=== PATIENT | female | born 2000 | race Caucasian/White ===

== ENCOUNTER 2020-02-06 02:24 | Inpatient (IN) ==
[2020-02-06] MEDS ORDERED: LACTATED RINGER'S 1,000 ML IV PRN (05:13)
[2020-02-06] MEDS ORDERED: METHYLERGONOVINE MALEATE 0.2 MG/ML AMP IM PRN (05:13)
[2020-02-06] MEDS ORDERED: OXYTOCIN 30 UNITS/500 ML BAG IV PRN ×2 (05:13→09:28)
[2020-02-06] MEDS ORDERED: PENICILLIN G POTASSIUM 3 MU in DEXTROSE 5% 100 ML IV PRN (05:30)
[2020-02-06] MEDS ORDERED: PENICILLIN G POTASSIUM 6 MU in DEXTROSE 5% 250 ML IV STA (05:35)
[2020-02-06 05:45] LABS: Hematocrit (blood only) 35.8 % (37-47); Hemoglobin 11.9 g/dL (12.0-16.0); Mean Corpuscular Hemoglobin 28.8 pg (25-34); Mean Corpuscular Volume 86.7 fL (80-100); Mean Platelet Volume 10.8 fL (7.4-10.4); Platelet Count 287 K/uL (130-400); RDW Coefficient of Variation 13.2 % (11.5-14.5); RDW Standard Deviation 41.8 fL (36.4-46.3); Red Blood Count 4.13 M/uL (4.2-5.4); White Blood Count 12.59 K/uL (4.8-10.8)
[2020-02-06 05:47] LABS: Mean Corpuscular Hgb Conc 33.2 g/dL (32-36)
[2020-02-06] MEDS ORDERED: ePHEDrine sulfate 50 MG/ML AMP ONE (06:26)
[2020-02-06] MEDS ORDERED: BUPIVACAINE 0.25% 30 ML VIAL ONE (06:26)
[2020-02-06] MEDS ORDERED: fentaNYL citrate 100 MCG/2 ML VIAL ONE (06:26)
[2020-02-06] MEDS ORDERED: fentaNYL 2MCG/ML ROPIV 1.25MG/ML 100 ML BAG EPI ONE (06:27)
--- NOTE | 2020-02-06 06:31 | History & Physical Report ---
Date of Service February 06, 2020 Assessment & Plan (1) Active labor at term: (2) Group B streptococcal bacteriuria: pt is admitted. iv abx due to gbs. suspect rupture at time pt reported before coming in although has been difficult to confirm time. now in active labor. consult anesth for epidural that pt desires[facility] Admission and Anticipated Discharge Date Admission Date: February 06, 2020 History of Present Illness Chief Complaint: regular ctx ? rom at 130am Primary Care Provider: Bairon Zepeda PA-C 19yo at 39+wks hermelinda presents to L&D with above cc. She called at 130am noting kick of baby and gush of fluid at 1 am today 02/06/20. She felt trickling. She was not having ctx. She wanted to come in for evaluation. When she came her pad was somewhat dry and was 1cm per nurse. She walked and labor started at her next exam about 5am she was 3cm with a regular ctx pattern and was admitted. Now she is breathing with ctx. Pads have been wet but not soaked. Per nurse at last check could not feel a bag of water. She desires epidural when able. course c/b 1. GBS pos PNL RH pos, RI, GBS pos OBH: g1 GYNH: nl paps no stds Allergies Allergy/AdvReac Type Severity Reaction Status Date / Time No Known Allergies Allergy Verified 02/06/20 02:40 Home Medications Home Medications Medication Instructions Recorded Confirmed Type clindamycin phosphate [Cleocin T] 1 applic TOPICAL BID PRN 08/17/19 02/06/20 History prenat.vits,chad,[id number]-[id number]-irpvv 1 tab PO DAILY 08/21/19 02/06/20 History Patient History Medical History (Updated 02/06/20 @ 06:30 by Aysha Shelton MD, FACOG) Alopecia Encounter for anatomic survey Hydronephrosis UTI (urinary tract infection) Varicella vaccine Surgical History (Updated 02/06/20 @ 02:40 by Anika Pham RN) [place] teeth removed 2014 Family History (Updated 02/06/20 @ 02:40 by Anika Pham RN) Grandmother (Maternal) Diabetes Myocardial infarction Hypertension Aunt Dyslipidemia Grandfather (Paternal) Kidney stones Grandfather (Maternal) Stroke Social History (Updated 08/21/19 @ 11:04 by Candida Avila) Preferred Language: Bangladeshi Communication Ability: Effective 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 Beliefs That Will Affect Care: None marital status: Single marital status details: FOB not in picture, unaware of Current Living Situation: Parent Current Living Situation Comment: lives with parents Other Information That Helps Us Care for You: No Feels Safe at Home: Yes Safety Concerns: Feels Safe At This Time Smoking Status: Never smoker Hx Alcohol Use: No Hx Substance Use: No Review of Systems as per Subjective / HPI; no fever as per Subjective / HPI and + abdominal pain as per Subjective / HPI Physical Exam Constitutional: WD/WN, vitals as above Respiratory: normal respiratory effort, lungs clear to auscultation Cardiovascular: RRR, no murmur, no edema Gastrointestinal (Abdomen): Percussion/Palpation: abdomen soft (gravid); abdomen nontender Musculoskeletal: no edema, nt calves. Psychiatric: A+Ox3, euthymic affect Genitourinary: OB Exam Abdomen: + estimated weight (7#) Manual OB Exam: + cervical dilation 5 cm, + cervical effacement 100%, + station -1 and + amniotic fluid (SSE, no pool, nitrazine pos but bloody, ferning not seen, no palp bag ) OB Exam Monitor Tracing: + external FHT monitor used (130 mod variability), + external uterine monitor used (q2), + category I and + normal FHT variability Results & Data ([place]) Vital Signs (Past 12 Hours) Vital Signs Temp Pulse Resp BP 02/06/20 05:30 97.7 F 20 02/06/20 02:42 97.7 F 18 02/06/20 02:37 97.7 F 96 H 18 135/89 Code Status & VTE Plan VTE Prophylaxis Plan VTE Prophylaxis will be ordered: No Coding Level of Care Code None Diagnoses Active labor at term Group B streptococcal bacteriuria R82.71
[2020-02-06] MEDS ORDERED: NALOXONE HCL 0.4 MG/1 ML VIAL/CARP IV PRN (07:00)
[2020-02-06] MEDS ORDERED: NALOXONE HCL 1 MG in SODIUM CHLORIDE 0.9% 1000ML 1,000 ML IV PRN (07:00)
[2020-02-06] MEDS ORDERED: NALBUPHINE HCL INJ 10 MG/ML AMP IV PRN (07:00)
[2020-02-06] MEDS ORDERED: fentaNYL 2MCG/ML ROPIV 1.25MG/ML 100 ML BAG EPI PRN (07:00)
[2020-02-06] MEDS ORDERED: DiphenhydrAMINE HCL 50 MG/ML VIAL IV PRN (07:00)
[2020-02-06] MEDS ORDERED: ONDANSETRON INJ 2 MG/ML 2 ML VIAL IV PRN (07:00)
[2020-02-06] MEDS ORDERED: ePHEDrine sulfate 50 MG/ML AMP IV PRN (07:00)
--- NOTE | 2020-02-06 07:04 | Anesthesiology Consultation ---
Date of Service February 06, 2020 Assessment & Plan Chart Review Chart Review: Patient NOT seen in Pre Admission Testing and Acceptable Risk for Labor Epidural Consults Requested none ASA ASA2 Proposed Anesthesia Anesthesia Type: Labor Epidural and CSE Risk / Benefits Reviewed With: PT / POA / Parent / Guardian, Accepts Plan and Informed Consent Obtained History Height/Weight Height: 5 ft 6 in Weight: 84.368 kg Allergies Allergy/AdvReac Type Severity Reaction Status Date / Time No Known Allergies Allergy Verified 02/06/20 02:40 Medications Home Medications Medication Instructions Recorded Confirmed Last Taken clindamycin phosphate [Cleocin T] 1 applic TOPICAL BID PRN 08/17/19 02/06/20 02/05/20 prenat.vits,chad,[id number] 1 tab PO DAILY 08/21/19 02/06/20 02/05/20 08:00 Active Medications Generic Name Dose Route Start Last Admin Trade Name Freq PRN Reason Stop Dose Admin Lactated Ringer's 1,000 mls @ 125 mls/hr 02/06/20 05:13 02/06/20 05:48 Lr IV 02/08/20 05:12 0 mls/hr .Q8H PRN Infusion L&D Protocol Protocol NPO Date Last Intake of Fluids: 02/06/20 Time Last Intake of Fluids: 06:00 Date Last Intake of Solids: 02/05/20 Time Last Intake of Solids: 18:00 Past Medical History Medical History Alopecia Encounter for anatomic survey Hydronephrosis UTI (urinary tract infection) Varicella vaccine Exercise / Class Metabolic Activity II 4-5 Yardwork/Stairs/Walk up hill Past Family History Family History Grandmother (Maternal) Diabetes Myocardial infarction Hypertension Aunt Dyslipidemia Grandfather (Paternal) Kidney stones Grandfather (Maternal) Stroke Past Surgical History Surgical History [place] teeth removed 2014 Past Anesthesia History No Hx of Anesthesia Complications and No Family Hx of Anesthesia Complications History of PONV No Hx of PONV and No Hx of Motion Sickness Social History Smoking Status: Never smoker Hx Alcohol Use: No Hx Substance Use: No Review of Systems no chest pain or sob Physical Exam Vital Signs Last Vital Signs Temp 36.5 C 02/06/20 05:30 Pulse 112 H 02/06/20 07:00 Resp 20 02/06/20 05:30 BP 139/81 02/06/20 06:27 Pulse Ox 98 02/06/20 07:00 ENMT Mouth: no TMJ abnormality Thyromental Distance: > or= 3.5 Finger Breadths Mallampati Class: II Neck normal visual inspection Respiratory normal respiratory effort Auscultation: lungs clear to auscultation bilaterally Cardiovascular Rate/Rhythm: regular rate and regular rhythm Musculoskeletal Spine: normal cervical ROM Neurologic moves all extremities Psychiatric Orientation: alert and oriented x 3 Testing Laboratory Results 02/06/20 05:25
[2020-02-06] MEDS ORDERED: ACETAMINOPHEN 325 MG TAB PO PRN (09:28)
[2020-02-06] MEDS ORDERED: SUPERCREAM 0.870% 15 GM JAR EXT PRN (09:28)
[2020-02-06] MEDS ORDERED: bisacodyL 10 MG SUPP PR PRN (09:28)
[2020-02-06] MEDS ORDERED: HYDROCORTISONE ACETATE 25 MG SUPP PR PRN (09:28)
[2020-02-06] MEDS ORDERED: BENZOCAINE 20% AER SPR 82.5 GM CAN EXT PRN (09:28)
--- NOTE | 2020-02-06 10:07 | Delivery Summary ---
DATE OF OPERATION: 02/06/2020 PROCEDURE: Normal spontaneous vaginal delivery with first degree perineal and bilateral periurethral laceration repairs. SURGEON: Dr. Jean Gutiérrez. PREOPERATIVE DIAGNOSES: 1. Single intrauterine at 39 weeks 6 days gestational age. 2. Spontaneous labor. 3. GBS positive. POSTOPERATIVE DIAGNOSES: 1. Single intrauterine at 39 weeks 6 days gestational age. 2. Spontaneous labor. 3. GBS positive. 4. Status post delivery. ESTIMATED BLOOD LOSS: 200 mL. DRAINS: None. FLUIDS: Continuous lactated ringer. URINE OUTPUT: Not measured. COMPLICATIONS: None. FINDINGS: Viable male with weight pending and Apgars of 9 and 9 at 1 and 5 minutes respectively. DESCRIPTION OF PROCEDURE: The patient progressed to 10 cm dilated, 100% effaced, +2 station, pushed over intact perineum with epidural anesthesia and delivered a viable male infant with weight and Apgars as noted above. Head of the delivered in THANG position, rest in right transverse. A tight nuchal was noted which was delivered through. Body and shoulders quickly followed and was noted to be vigorous upon delivery and was delivered to maternal abdomen. A 1 minute delayed cord clamping was initiated. Cord was double clamped and cut. was able to remain on maternal abdomen as it was still noted to be vigorous. Cord blood was then obtained. Attention was then turned to deliver the placenta, which was delivered intact, 3-vessel cord, gentle cord traction. On inspection of perineum, vagina and cervix, there was noted to be a first degree perineal laceration and bilateral periurethral lacerations which were repaired with 3-0 Vicryl. The perineal laceration was repaired with continuous running stitch and both periurethrals were repaired with interrupted stitch. Needle, sponge and instrument counts were correct at the completion of the case. Both mother and were stable in the immediate post delivery period. I attest to the content of the Intraoperative Record and any orders documented therein. Any exception s are noted below.
[2020-02-06] MEDS: IBUPROFEN 600 MG TAB PO PRN ×3 (10:50→20:21)
--- NOTE | 2020-02-06 11:10 | Anesthesia Procedure Note ---
Date of Service February 06, 2020 Anesthesia Post Epidural Note Vital Signs Vital Signs: Temp Pulse Resp BP Pulse Ox 37.1 C 77 20 129/86 98 02/06/20 09:26 02/06/20 10:56 02/06/20 10:11 02/06/20 10:56 02/06/20 09:30 Pain Intensity Abdomen: Pain Intensity: 0 Notes Mental Status: alert / awake / arousable and participated in evaluation Patient Amnestic to Procedure: Yes Nausea / Vomiting: adequately controlled Pain: adequately controlled Airway Patency, RR, SpO2: stable & adequate BP & HR: stable & adequate Hydration State: stable & adequate Anesthetic Complications: no major complications apparent and Pt Satisfied with anesthetic care
[2020-02-06] MEDS: DOCUSATE SODIUM 100 MG CAP PO SCH (20:19)
[2020-02-07] MEDS: IBUPROFEN 600 MG TAB PO PRN ×3 (01:47→17:56)
[2020-02-07 06:15] LABS: Hematocrit (blood only) 35.1 % (37-47); Hemoglobin 11.8 g/dL (12.0-16.0)
[2020-02-07] MEDS: DOCUSATE SODIUM 100 MG CAP PO SCH ×2 (08:05→20:05)
[2020-02-07] MEDS: PRENATAL VITAMIN 1 TAB PO SCH (08:05)
--- NOTE | 2020-02-07 08:56 | Obstetrical Progress Note ---
Date of Service February 07, 2020 Assessment & Plan (1) care and examination: Day 1 . Doing well. Routine care Subjective Ambulation: ambulating normally Voiding: no voiding problems Diet Tolerance:: regular diet Lochia:: Moderate Physical Exam Constitutional WD/WN, vitals as above Respiratory normal respiratory effort; no respiratory distress and no labored breathing Gastrointestinal (Abdomen) Inspection/Auscultation: abdomen normal to inspection; abdomen not distended Percussion/Palpation: abdomen soft; abdomen nontender, no guarding and abdomen not rigid Genitourinary OB Exam Abdomen: + fundal height Fundus: + firm and + relation to umbilicus ( Below); not tender and not boggy Results & Data ([facility]) Vital Signs (Past 12 Hours) Vital Signs Temp Pulse Resp BP Pulse Ox 02/07/20 03:00 36.8 C 74 16 115/74 02/06/20 23:00 36.6 C 71 16 129/87 97
[2020-02-07] MEDS ORDERED: DIPHTHERIA/TETANUS/PERTUSSIS 0.5 ML SYR/VIAL IM ONE (09:00)
[2020-02-07] MEDS ORDERED: bisacodyL 5 MG TABEC PO SCH (20:00)
[2020-02-08] MEDS: IBUPROFEN 600 MG TAB PO PRN (05:39)
--- NOTE | 2020-02-08 07:29 | Obstetrical Progress Note ---
Date of Service February 08, 2020 Assessment & Plan (1) care and examination: Day 2 s/p . Doing well. Stable for discharge. Subjective Ambulation: ambulating normally Voiding: no voiding problems Passing Gas:: Yes Diet Tolerance:: regular diet Lochia:: Small Feeding Type:: breast feeding Physical Exam Constitutional WD/WN, vitals as above Respiratory normal respiratory effort; no respiratory distress and no labored breathing Gastrointestinal (Abdomen) Inspection/Auscultation: abdomen normal to inspection; abdomen not distended Percussion/Palpation: abdomen soft; abdomen nontender, no guarding and abdomen not rigid Genitourinary OB Exam Abdomen: + fundal height Fundus: + firm and + relation to umbilicus (Below); not tender and not boggy Results & Data ([facility]) Vital Signs (Past 12 Hours) Vital Signs Temp Pulse Resp BP Pulse Ox 02/07/20 23:25 36.7 C 83 18 127/92 98
[2020-02-08] MEDS: PRENATAL VITAMIN 1 TAB PO SCH (08:07)
[2020-02-08] MEDS: DOCUSATE SODIUM 100 MG CAP PO SCH (08:07)
== END 2020-02-08 12:10 | disposition home or self-care (01) | DRG 807 ==
LOC: OPB 02:24 → 4S1 02:28 → 4S2 12:08

== ENCOUNTER 2022-08-01 20:10 | Inpatient (IN) ==
[2022-08-02] MEDS ORDERED: LIDOCAINE 1% LOCAL 20 ML VIAL INFIL PRN (08:48)
[2022-08-02] MEDS ORDERED: OXYTOCIN 30 UNITS/500 ML BAG IV PRN ×3 (08:48→16:43)
[2022-08-02] MEDS ORDERED: PENICILLIN G POTASSIUM 6 MU in DEXTROSE 5% 250 ML IV STA (08:48)
[2022-08-02] MEDS ORDERED: FLUARIX QUADRIVALENT 0.5 ML SYR IM ONE (09:00)
[2022-08-02] MEDS: LACTATED RINGER'S 1,000 ML IV PRN ×2 (09:00→13:11)
--- NOTE | 2022-08-02 09:36 | History & Physical Report ---
Date of Service August 02, 2022 Assessment & Plan (1) : (2) Group B Streptococcus carrier, antepartum: Plan 22 yo at 40 4/7 wga presents for eIOL VSS Fetus cat 1 Labor - will start pit GBS+, start pcn epidural PRN Admission and Anticipated Discharge Date Admission Date: August 01, 2022 History of Present Illness Chief Complaint: IOL Primary Care Provider: NO PCP 22 yo at 40 4/7 wga presents for eIOL. 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 2019 at 39 wks G2 current regular cycles denies hx STIs 08/2019 neg cyto Allergies Allergy/AdvReac Type Severity Reaction Status Date / Time No Known Allergies Allergy Verified 08/01/22 20:22 Home Medications Medication Instructions Recorded Confirmed Type prenat.vits,chad,jnn-fzpa-zkion 1 tab PO DAILY 01/08/22 08/01/22 History Patient History Medical History Alopecia Encounter for anatomic survey Hydronephrosis UTI (urinary tract infection) Varicella vaccine Surgical History [place] teeth removed 2014 Family History Grandmother (Maternal) Diabetes Myocardial infarction Hypertension Aunt Dyslipidemia Grandfather (Paternal) Kidney stones Grandfather (Maternal) Stroke Family/Other Colorectal cancer cousin Denies family history of Ovarian cancer Breast cancer Social History (Updated 01/08/22 @ 09:58 by Yamile Singh) Smoking Status: Never smoker Hx Alcohol Use: No Hx Substance Use: No Preferred Language: Bots[place]an Communication Ability: Effective 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 Beliefs That Will Affect Care: None marital status: Single marital status details: kyra Moss (24) [phone] Current Living Situation: Family and Significant Other Current Living Situation Comment: lives with fob, child, dog current occupational status: employed 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 Other Information That Helps Us Care for You: No Feels Safe at Home: Yes Safety Concerns: Feels Safe At This Time Assistive Devices: Contacts Physical Exam Genitourinary: OB Exam Abdomen: + vertex and + estimated weight (7-8) Manual OB Exam: + cervical dilation (2.5), + cervical effacement 50% and + station -2 OB Exam Monitor Tracing: + external FHT monitor used, + external uterine monitor used (irritable) and + category I (135/mod/+accel/-decel) Results & Data ([facility]) Vital Signs (Past 12 Hours) Vital Signs Temp Resp BP 08/02/22 08:15 98.6 F 18 123/82 08/02/22 08:12 18 08/02/22 08:12 98.6 F 18 123/82 Laboratory Results OB Labs: Blood Type B Positive 01/11/22 Antibody Screen NEGATIVE 01/11/22 Hemoglobin 12.3 g/dl (12.0-16.0) 05/10/22 Hematocrit 35.7 % (34.1-44.9) 05/10/22 Mean Corpuscular Volume 82.5 fL (80-100) 01/11/22 Platelet Count 364 K/uL (130-400) 01/11/22 Rubella IgG Antibody Immune (Immune) 01/11/22 A Rapid Plasma Reagin Nonreactive (Nonreactive) 01/11/22 Hepatitis B Surface Antigen Neg (Neg) 08/27/19 Hepatitis B Surface Antigen. NON-REACTIVE (NON-REACTIVE) 01/11/22 Hepatitis C Antibody (EIA) NON-REACTIVE (NON-REACTIVE) 01/11/22 HIV (1&2) Ab and P24 Ag, 4th Gener Neg (Neg) 08/27/19 HIV (1&2) Ag and Ab Confirmation NON-REACTIVE (NON-REACTIVE) 01/11/22 Glucose 1 Hour 50 gm Load 97 mg/dl (70-130) 05/10/22 OB Optional Labs: Chlamydia trachomatis RNA NOT DETECTED (NOT DETECTED) 01/11/22 Neisseria gonorrhoeae RNA NOT DETECTED (NOT DETECTED) 01/11/22 Labs Reviewed: declines cf/sma, panorama, msafp and quad screen 01/11/22 Hep B Non reactive Hep C Non reactive HIV Non reactive Diagnostic Findings post plac Code Status & VTE Plan VTE Prophylaxis Plan VTE Prophylaxis will be ordered: No Coding Level of Care Code None Diagnoses Z34.90 Group B Streptococcus carrier, antepartum O99.820
[2022-08-02 09:50] LABS: Hematocrit (blood only) 31.2 % (34.1-44.9); Hemoglobin 10.4 g/dl (12.0-16.0); Mean Corpuscular Hemoglobin 28.3 pg (25.0-34.0); Mean Corpuscular Hgb Conc 33.3 g/dL (32.0-36.0); Mean Corpuscular Volume 84.8 fL (80.0-100.0); Mean Platelet Volume 11.1 fL (9.4-12.3); Platelet Count 307 K/uL (130-400); RDW Standard Deviation 39.8 fL (36.4-46.3); Red Blood Count 3.68 M/uL (3.93-5.22); White Blood Count 10.89 K/ul (4.8-10.8)
[2022-08-02] MEDS ORDERED: PENICILLIN G POTASSIUM 3 MU in DEXTROSE 5% 100 ML IV PRN (12:00)
[2022-08-02] MEDS ORDERED: ePHEDrine sulfate 50 MG/ML AMP ONE (12:15)
[2022-08-02] MEDS ORDERED: SODIUM CHLORIDE 0.9% INJ 10 ML VIAL ONE (12:16)
[2022-08-02] MEDS ORDERED: fentaNYL 2MCG/ML ROPIVACAINE 1.25MG/ML 100 ML BAG EPI ONE (12:16)
[2022-08-02] MEDS ORDERED: LIDOCAINE 2%/EPINEPHRINE 1:200,000 20 ML SDV ONE (12:16)
[2022-08-02] MEDS ORDERED: fentaNYL citrate 100 MCG/2 ML VIAL ONE (12:16)
[2022-08-02] MEDS ORDERED: BUPIVACAINE 0.25% 30 ML VIAL ONE (12:16)
[2022-08-02] MEDS ORDERED: NALOXONE HCL 0.4 MG/1 ML VIAL/CARP IV PRN (12:48)
[2022-08-02] MEDS ORDERED: fentaNYL 2MCG/ML ROPIVACAINE 1.25MG/ML 100 ML BAG EPI PRN (12:48)
[2022-08-02] MEDS ORDERED: NALOXONE HCL 1 MG in SODIUM CHLORIDE 0.9% 1000ML 1,000 ML IV PRN (12:48)
[2022-08-02] MEDS ORDERED: NALBUPHINE HCL INJ 10 MG/ML AMP IV PRN (12:48)
[2022-08-02] MEDS ORDERED: ONDANSETRON INJ 2 MG/ML 2 ML VIAL IV PRN (12:48)
[2022-08-02] MEDS ORDERED: ePHEDrine sulfate 50 MG/ML AMP IV PRN (12:48)
[2022-08-02] MEDS ORDERED: diphenhydrAMINE 50 MG/ML VIAL IV PRN (12:48)
--- NOTE | 2022-08-02 12:50 | Anesthesiology Consultation ---
Date of Service August 02, 2022 Assessment & Plan Chart Review Chart Review: Patient NOT seen in Pre Admission Testing and Acceptable Risk for Labor Epidural Consults Requested none ASA ASA2 Proposed Anesthesia Anesthesia Type: Labor Epidural and CSE Risk / Benefits Reviewed With: PT / POA / Parent / Guardian, Accepts Plan and Informed Consent Obtained History Height/Weight Height: 5 ft 5 in Weight: 87.767 kg Allergies Allergy/AdvReac Type Severity Reaction Status Date / Time No Known Allergies Allergy Verified 08/01/22 20:22 Medications Home Medications Medication Instructions Recorded Confirmed Last Taken prenat.vits,chad,jys-fvlz-ppvom 1 tab PO DAILY 01/08/22 08/01/22 Unknown Active Medications Generic Name Dose Route Start Last Admin Trade Name Freq PRN Reason Stop Dose Admin Lactated Ringer's 1,000 mls @ 125 mls/hr 08/02/22 08:48 08/02/22 09:00 Lr IV 08/04/22 08:47 125 mls/hr .Q8H PRN Administration L&D Protocol Protocol Oxytocin 30 units in 500 mls @ 12 mls/hr 08/02/22 08:48 08/02/22 12:10 Pitocin IV 08/04/22 08:47 0.72 units/hr .Q24H PRN 12 mls/hr Labor Induction/Augmentation Titration Protocol 0.72 UNITS/HR NPO Date Last Intake of Fluids: 08/02/22 Time Last Intake of Fluids: 11:00 Date Last Intake of Solids: 08/02/22 Time Last Intake of Solids: 07:00 Past Medical History Medical History Alopecia Encounter for anatomic survey Hydronephrosis UTI (urinary tract infection) Varicella vaccine Exercise / Class Metabolic Activity II 4-5 Yardwork/Stairs/Walk up hill Past Family History Family History Grandmother (Maternal) Diabetes Myocardial infarction Hypertension Aunt Dyslipidemia Grandfather (Paternal) Kidney stones Grandfather (Maternal) Stroke Family/Other Colorectal cancer cousin Denies family history of Ovarian cancer Breast cancer Past Surgical History Surgical History [place] teeth removed 2014 Past Anesthesia History No Hx of Anesthesia Complications and No Family Hx of Anesthesia Complications History of PONV No Hx of PONV and No Hx of Motion Sickness Social History Smoking Status: Never smoker Hx Alcohol Use: No Hx Substance Use: No substance use type: does not use Review of Systems no chest pain or sob Physical Exam Vital Signs Last Vital Signs Temp 36.9 C 08/02/22 12:14 Pulse 78 08/02/22 12:43 Resp 18 08/02/22 08:15 BP 135/77 08/02/22 12:19 Pulse Ox 100 08/02/22 12:43 ENMT Mouth: no TMJ abnormality Thyromental Distance: > or= 3.5 Finger Breadths Mallampati Class: II Neck normal visual inspection Respiratory normal respiratory effort Auscultation: lungs clear to auscultation bilaterally Cardiovascular Rate/Rhythm: regular rate and regular rhythm Musculoskeletal Spine: normal cervical ROM Neurologic moves all extremities Psychiatric Orientation: alert and oriented x 3 Testing Laboratory Results 08/02/22 09:26
--- NOTE | 2022-08-02 13:41 | Labor Progress Brief Note ---
Date of Service August 02, 2022 Subjective comfortable w/epidural Assessment & Plan (1) : (2) Group B Streptococcus carrier, antepartum: Plan 22 yo at 40 4/7 wga presents for eIOL VSS Fetus cat 1 Labor - pit at 14, now s/p arom. Continue induction GBS+, start pcn epidural in place Admission and Anticipated Discharge Date Admission Date: August 01, 2022 Physical Exam Genitourinary: Manual OB Exam: + cervical dilation 3 cm, + cervical effacement 50%, + station -2 and + amniotic fluid (s/p arom) OB Exam Monitor Tracing: + external FHT monitor used, + external uterine monitor used (q3) and + category I (135/mod/+accel/-decel) Results & Data ([facility]) Vital Signs (Past 12 Hours) Vital Signs Temp Pulse Resp BP Pulse Ox 08/02/22 08:15 98.6 F 18 123/82 08/02/22 13:38 71 100 08/02/22 13:33 85 100 08/02/22 13:31 85 123/86 08/02/22 13:28 77 97 08/02/22 13:27 75 121/77 08/02/22 13:15 18 08/02/22 13:15 18 08/02/22 13:09 18 08/02/22 13:09 18 08/02/22 13:23 82 99 08/02/22 13:21 95 H 117/56 L 08/02/22 13:18 92 H 100 08/02/22 13:13 105 H 16 100 08/02/22 13:14 76 111/60 08/02/22 13:12 81 120/65 08/02/22 13:10 84 117/69 08/02/22 13:08 79 119/62 100 08/02/22 13:06 84 18 132/68 08/02/22 13:04 81 135/63 08/02/22 13:03 98 H 92 08/02/22 13:02 88 131/83 08/02/22 13:00 97 H 131/85 08/02/22 12:58 116 H 178/111 H 100 08/02/22 12:56 97 H 129/84 08/02/22 12:53 88 100 08/02/22 12:48 88 100 08/02/22 12:49 96 H 118/81 12/15/22 12:43 78 100 08/02/22 12:38 85 100 08/02/22 12:33 96 H 100 08/02/22 12:28 82 100 08/02/22 12:14 98.4 F 08/02/22 12:23 84 100 08/02/22 12:18 78 100 08/02/22 12:19 83 135/77 08/02/22 11:49 85 130/84 08/02/22 11:19 76 115/72 08/02/22 10:19 85 121/77 08/02/22 09:50 80 120/78 08/02/22 09:31 86 119/78 08/02/22 08:12 18 08/02/22 08:12 98.6 F 18 123/82 Coding Level of Care Code None Diagnoses Z34.90 Group B Streptococcus carrier, antepartum O99.820
--- NOTE | 2022-08-02 16:25 | Delivery Summary ---
Vaginal Delivery Summary Date of Service August 02, 2022 Vaginal Delivery Summary and 1st Degree LAC PREOPERATIVE DIAGNOSIS: 1. Single intrauterine at 40 4/7 wga 2. GBS+ POSTOPERATIVE DIAGNOSIS: 1. Single intrauterine at 40 4/7 wga 2. GBS+ 3. Delivered PROCEDURE: 1. Normal spontaneous vaginal delivery. SURGEON: Rosey Peterson MD ANESTHESIA: Epidural. ESTIMATED BLOOD LOSS: 300 mL FLUIDS: Continuous LR. URINE OUTPUT: None. COMPLICATIONS: None. CONDITION: Stable. INDICATIONS: 22 yo at 40 4/7 wga presented for induction of labor today. Penicillin was started for GBS ppx and pitocin was used to start induction. She underwent AROM and received an epidural. She progressed from 4cm to complete over an hour and desired to push FINDINGS: A viable male infant, weight pending with Apgars of 8 and 9 at 1 and 5 minutes respectively. SPECIMEN: Cord blood OPERATIVE REPORT: The patient progressed to 10 cm, 100% effaced and +2 station, pushed over intact perineum with anesthesia to deliver a viable male , weight and Apgars as above. Head of delivered in THANG position. Tight nuchal cord was noted and delivered through. Body and shoulders were delivered without difficulty. was delivered to maternal abdomen and nursing staff. Delayed cord clamping was performed for 60 seconds. Cord was clamped and cut. Cord blood was obtained. Placenta delivered spontaneously intact with 3-vessel cord. IV oxytocin and fundal massage were given for excellent hemostasis. Vagina, cervix, perineum, and placenta were inspected. A first degree and left periclitoral laceration were noted and repaired using 4-0 vicryl in the usual fashion, there was excellent hemostasis. Sponge and needle counts correct x2. No sponges were left behind. Mother and stable in immediate period. [facility] Vaginal Delivery Codes: 46767 global code for the antepartum, delivery, and post- Delivery Type Details: and 1st Degree LAC
[2022-08-02] MEDS ORDERED: HYDROCORTISONE ACETATE 25 MG SUPP PR PRN (16:43)
[2022-08-02] MEDS ORDERED: BENZOCAINE 20% AER SPR 82.5 GM CAN EXT PRN (16:43)
[2022-08-02] MEDS ORDERED: DIPHTHERIA/TETANUS/PERTUSSIS 0.5 ML SYR/VIAL IM ONE (16:43)
[2022-08-02] MEDS: IBUPROFEN 600 MG TAB PO PRN (17:47)
--- NOTE | 2022-08-02 17:47 | Anesthesia Procedure Note ---
Date of Service August 02, 2022 Anesthesia Post Epidural Note Vital Signs Vital Signs: Temp Pulse Resp BP Pulse Ox 36.8 C 77 16 133/69 100 08/02/22 16:15 08/02/22 17:31 08/02/22 17:15 08/02/22 17:31 08/02/22 15:58 Notes Mental Status: alert / awake / arousable and participated in evaluation Nausea / Vomiting: adequately controlled Pain: adequately controlled Airway Patency, RR, SpO2: stable & adequate BP & HR: stable & adequate Hydration State: stable & adequate Neuraxial Anesthesia: was administered and sensory block is resolving Anesthetic Complications: no major complications apparent and Pt Satisfied with anesthetic care Epidural: Removed without complications and With tip intact
[2022-08-02] MEDS: DOCUSATE SODIUM 100 MG CAP PO SCH (20:26)
[2022-08-03] MEDS: IBUPROFEN 600 MG TAB PO PRN ×5 (00:11→15:44)
[2022-08-03] MEDS ORDERED: CALCIUM CARBONATE 500 MG CHEWABLE TAB PO PRN (00:11)
[2022-08-03] MEDS: ACETAMINOPHEN 325 MG TAB PO PRN ×4 (04:11→15:44)
--- NOTE | 2022-08-03 04:45 | Obstetrical Progress Note ---
Date of Service August 03, 2022 Assessment & Plan (1) care following vaginal delivery: Plan - Overall, feeling well and eating well today - Infant feeding going well without concern - Urinating and stooling appropriately - Ambulating well - Pain controlled w/ Ibuprofen - Hgb 10.4 on 08/02 - Vitals stable - Routine PP care progressing well - GBS +, received PCN - Anticipate discharge today if baby is ready - Recommending f/u outpatient in 6 weeks Admission and Anticipated Discharge Date Admission Date: August 01, 2022 Supervising Physician Co-Signing Physician Notes Resident Physician Supervision Note: I interviewed and examined the patient. Discussed with Dr. Rhodes and agree with findings and plan as documented in the note. Any exceptions or clarifications are listed here: PP1 s/p doing well. VSS, exam benign and wnl. Desires d/c home, stable to do so after 24 hrs Documented By: Rosey Peterson MD Subjective Patient is a 22 y/o female who is PPD #1 following vaginal delivery at 40w4d. She reports feeling well overall this morning and wants to go home. - Ambulation - well throughout room - Voiding/Foster - independent voids, no dysuria or pressure - Gas/Stool - passing gas, no bowel movement - Diet - regular, no nausea or emesis - Lochia - diminishing, mod amount - Infant Feeding Type - breast feeding - Pain Level - 0/10, controlled with Ibuprofen and Tylenol Review of Systems - Denies fever, chills, sweats - Denies shortness of breath, difficulty breathing, chest pain, palpitations, chest pressure. - Denies breast pain. - Denies dysuria. - Denies headache or changes in vision. Physical Exam Physical Exam: General: Alert, oriented. No acute distress. Cardiac: RRR, normal S1/S2, no murmurs/rubs/gallops. Respiratory: Non-labored, CTAB, no wheezes/rales/rhonchi. Symmetric chest rise. Abdomen: Soft, nontender, nondistended. Bowel sounds present. Uterus: Uterine fundus firm, palpable 2 cm below umbilicus. Lower Extremities: No lower extremity edema or swelling. No deep calf pain. Jamie's negative bilaterally. Results & Data ([facility]) Vital Signs (Past 12 Hours) Vital Signs Temp Pulse Pulse Resp BP BP Pulse Ox 12/16/22 00:55 36.6 C 72 16 117/74 96 08/02/22 20:15 36.6 C 85 16 130/86 97 08/02/22 18:15 18 08/02/22 17:45 16 08/02/22 17:15 16 08/02/22 17:00 18 08/02/22 16:45 16 08/02/22 18:16 91 H 08/02/22 18:16 134/88 08/02/22 18:01 104 H 137/92 08/02/22 17:46 80 129/75 08/02/22 17:31 77 133/69 08/02/22 17:16 64 123/68 08/02/22 17:01 77 115/63 08/02/22 16:46 80 117/57 L O2 Del Method 08/03/22 00:55 Room Air 08/02/22 20:15 Room Air 08/02/22 18:15 08/02/22 17:45 08/02/22 17:15 08/02/22 17:00 08/02/22 16:45 08/02/22 18:16 08/02/22 18:16 08/02/22 18:01 08/02/22 17:46 08/02/22 17:31 08/02/22 17:16 08/02/22 17:01 08/02/22 16:46 Resident Activity Tracking Resident Involvement: Resident Care Provided Care Provided: OB Delivery
[2022-08-03] MEDS: DOCUSATE SODIUM 100 MG CAP PO SCH (07:36)
[2022-08-03] MEDS ORDERED: FERROUS SULFATE 325 MG TAB PO SCH (08:00)
[2022-08-03] MEDS ORDERED: PRENATAL VITAMIN 1 TAB PO SCH (08:00)
[2022-08-03] MEDS ORDERED: bisacodyL 5 MG TABEC PO SCH (20:00)
[2022-08-04] MEDS ORDERED: bisacodyL 10 MG SUPP PR PRN (09:00)
== END 2022-08-03 18:51 | disposition home or self-care (01) | DRG 768 ==
LOC: 4S1 20:10 → UNDODISIN 20:55 → 4S1 08-02 08:12 → 4E2 08-02 19:09